=== PATIENT | male | born 1965 | race Caucasian/White ===

== ENCOUNTER 2020-05-26 13:46 | Inpatient (IN) | payer SELFPAY ==
--- NOTE | 2020-05-26 13:53 | BHS.RME ---
Substance Use & Tx History - Substance Use History Alcohol Substance amount: 1 gallon of vodka within 3 days Frequency of use: Daily Substance route: Oral Date of Last Use: 05/26/20 - Last Treatment Treatment type: Medical Where was last treatment: Detox Physical/Psych/Mental Status - Behavior Eye Contact: Normal - Cooperativeness Cooperativeness: Cooperative, Friendly - Physical Health Problems Is patient presently having any pain?: Yes Does patient presently have any injuries (include location): Yes (right elbow and right knee) Does patient currently have a fever: No Is patient : No CIWA Nausea/Vomitin-Mild Nausea/No Vomiting Muscle Tremors: 4-Moderate,w/Arms Extend Anxiety: 4-Mod. Anxious/Guarded Agitation: 4-Moderately Restless Paroxysmal Sweats: 3 Orientation: 0-Oriented Tacttile Disturbances: 0-None Auditory Disturbances: 0-None Visual Disturbances: 0-None Headache: 2-Mild CIWA-Ar Total Score: 18
--- NOTE | 2020-05-26 14:03 | HP ---
CIWA Score Nausea/Vomitin-Mild Nausea/No Vomiting Muscle Tremors: 4-Moderate,w/Arms Extend Anxiety: 4-Mod. Anxious/Guarded Agitation: 4-Moderately Restless Paroxysmal Sweats: 3 Orientation: 0-Oriented Tacttile Disturbances: 0-None Auditory Disturbances: 0-None Visual Disturbances: 0-None Headache: 2-Mild CIWA-Ar Total Score: 18 - Admission Criteria OASAS Guidelines: Admission for Medically Managed Detox: Requires at least one of the followin. CIWA greater than 12 2. Seizures within the past 24 hours 3. Delirium tremens within the past 24 hours 4. Hallucinations within the past 24 hours 5. Acute intervention needed for co occurring medical disorder 6. Acute intervention needed for co occurring psychiatric disorder 7. Severe withdrawal that cannot be handled at a lower level of care (continued vomiting, continued diarrhea, abnormal vital signs) requiring intravenous medication and/or fluids 8. Admitting History and Physical - Primary Care Physician PCP: none - Admission Chief Complaint: I feel sick and want to get better. History of Present Illness: Pt is a 55yr old male with a history of alcohol dependence seeking detox for treatment. Pt states he has a h/o HTN History Source: Patient Limitations to Obtaining History: No Limitations, Language Barrier - Past Medical History Gastrointestinal: Yes: Gastritis Psych: Yes: Depression Musculoskeletal: Yes: Chronic low back pain - Past Surgical History Past Surgical History: Yes: None - Smoking History Smoking history: Never smoked Have you smoked in the past 12 months: No - Alcohol/Substance Use Hx Alcohol Use: Yes Number of Drinks Daily: 1 History of Substance Use: reports: None - Social History Usual Living Arrangement: Yes: With Spouse Do you think of yourself as: Straight/Heterosexual ADL: Independent Admission ROS [facility] Chief Complaint: I feel sick and want to get better. Allergies/Adverse Reactions: Allergies Allergy/AdvReac Type Severity Reaction Status Date / Time No Known Allergies Allergy Verified 05/26/20 13:48 History of Present Illness: pt is a 55yr old male with a history of alcohol dependence seeking detox for treatment. pt is a fluent Lithuanian speaking male but understand little Bengali. pt also c/o of depression but has not seen a psychiatrist Exam Limitations: Language Barrier - Ebola screening Have you traveled outside of the country in the last 21 days: No Have you had contact with anyone from an Ebola affected area: No Have you been sick,other than usual withdrawal symptoms: No Do you have a fever: No - Review of Systems Constitutional: Chills, Diaphoresis, Loss of Appetite, Night Sweats, Changes in sleep EENT: reports: Tearing Respiratory: reports: No Symptoms reported Cardiac: reports: No Symptoms Reported GI: reports: Nausea, Poor Appetite, Poor Fluid Intake : reports: No Symptoms Reported Musculoskeletal: reports: Back Pain Integumentary: reports: Bruising (right elbow) Neuro: reports: Headache, Tingling, Tremors, Dizziness Endocrine: reports: Excessive Sweating, Flushing, Intolerance to Cold, Intolerance to Heat Hematology: reports: No Symptoms Reported Psychiatric: reports: Judgement Intact, Mood/Affect Appropiate, Orientated x3, Agitated Other Systems: Reviewed and Negative Patient History - Patient Medical History Hx Anemia: No Hx Asthma: No Hx Chronic Obstructive Pulmonary Disease (COPD): No Hx Cancer: No Hx Cardiac Disorders: No Hx Congestive Heart Failure: No Hx Hypertension: No Hx Hypercholesterolemia: No Hx Pacemaker: No HX Cerebrovascular Accident: No Hx Seizures: No Hx Dementia: No Hx Diabetes: No Hx Gastrointestinal Disorders: No Hx Liver Disease: No Hx Genitourinary Disorders: No Hx Sexually Transmitted Disorders: No Hx Renal Disease (ESRD): No Hx Thyroid Disease: No Hx Human Immunodeficiency Virus (HIV): No (pt denies ) Hx Hepatitis C: No Hx Depression: Yes Hx Suicide Attempt: No Hx Bipolar Disorder: No Hx Schizophrenia: No - Patient Surgical History Past Surgical History: No - PPD History Previous Implant?: Yes Documented Results: Positive w/o proof Implanted On Prior R Admission?: No PPD to be Administered?: No - Reproductive History Patient is a Female of Child Bearing Age (11 -55 yrs old): No - Smoking Cessation Smoking history: Never smoked Have you smoked in the past 12 months: No Hx Chewing Tobacco Use: No - Substance & Tx. History Hx Alcohol Use: Yes Hx Substance Use: No Substance Use Type: Alcohol Hx Substance Use Treatment: No - Substances abused Alcohol Substance route: Oral Frequency: Daily Amount used: 1 gallon of vodka within 3 days Age of first use: 15 Date of last use: 05/26/20 Admission Physical Exam BHS - Physical General Appearance: Yes: Appropriately Dressed, Moderate Distress, Irritable, Sweating, Anxious HEENTM: Yes: Normal Voice Respiratory: Yes: Lungs Clear, Normal Breath Sounds, No Respiratory Distress Neck: Yes: Within Normal Limits Breast: Yes: Within Normal Limits Cardiology: Yes: Regular Rate, Tachycardia Abdominal: Yes: Normal Bowel Sounds, Soft Genitourinary: Yes: Within Normal Limits Back: Yes: Within Normal Limits Musculoskeletal: Yes: Back pain Extremities: Yes: Non-Tender, Tremors Neurological: Yes: Fully Oriented, Alert, Normal Response Integumentary: Yes: Normal Color Lymphatic: Yes: Within Normal Limits - Diagnostic (1) Alcohol dependence with withdrawal, uncomplicated Current Visit: Yes Status: Chronic (2) Depression Current Visit: Yes Status: Acute Cleared for Admission S - Detox or Rehab [facility] Level of Care: Medically Managed Detox Regimen/Protocol: Librium Inpatient Rehab Admission - Rehab Decision to Admit Inpatient rehab admission?: No
[2020-05-26] MEDS ORDERED: chlordiazePOXIDE HCL 25 MG CAPSULE PO ONE (14:19)
[2020-05-26] MEDS ORDERED: MAGNESIUM CITRATE 300 ML BOTTLE PO PRN (14:19)
[2020-05-26] MEDS ORDERED: MAGNESIUM HYDROX 2400MG/30ML ORAL SUSPENSION 30 ML CUP PO PRN (14:19)
[2020-05-26] MEDS ORDERED: ACETAMINOPHEN 325 MG TABLET (FP) PO PRN ×2 (14:19)
[2020-05-26] MEDS ORDERED: MENTHOL/PHENOL 1 EACH UD MM PRN (14:19)
[2020-05-26] MEDS ORDERED: METHOCARBAMOL 500 MG TABLET PO PRN (14:19)
[2020-05-26] MEDS ORDERED: chlordiazePOXIDE HCL 25 MG CAPSULE PO PRN (14:19)
[2020-05-26] MEDS ORDERED: IBUPROFEN 400 MG TABLET (FP) PO PRN (14:19)
[2020-05-26] MEDS ORDERED: BISMUTH SUBSALICYLATE 262 MG/15 ML BTL PO PRN (14:19)
[2020-05-26] MEDS ORDERED: MAG HYDROX/AL HYDROX/SIMETH 30 ML UNIT-DOSE CUP PO PRN (14:19)
[2020-05-26] MEDS ORDERED: ONDANSETRON *ODT* 4 MG TABLET SL PRN (14:19)
[2020-05-26] MEDS ORDERED: hydrOXYzine PAMOATE 25 MG CAPSULE (FP) PO PRN (14:19)
[2020-05-26 15:15] VITALS: BMI 26.6
[2020-05-26] MEDS: chlordiazePOXIDE HCL 25 MG CAPSULE PO SCH ×2 (16:22→22:40)
[2020-05-26 18:25] LABS: HEMATOCRIT 34.7 % (35.4-49); HEMOGLOBIN 10.3 GM/dL (11.7-16.9); MCHC 29.8 g/dl (32.0-35.9); MEAN CELL VOLUME 63.8 fl (80-96); RBC 5.44 M/mm3 (4.00-5.60); RDW 22.5 % (11.9-15.9); WHITE BLOOD COUNT 5.2 K/mm3 (4.0-10.0)
[2020-05-26 18:42] LABS: ALBUMIN 4.3 g/dl (3.4-5.0); BILIRUBIN,TOTAL 0.9 mg/dL (0.2-1); BLOOD UREA NITROGEN 13.2 mg/dL (7-18); CALCIUM 8.4 mg/dL (8.5-10.1); CREATININE 0.5 mg/dL (0.55-1.3); TOT PROT 8.3 g/dl (6.4-8.2)
[2020-05-26] MEDS ORDERED: TRIMETHOBENZAMIDE HCL 200MG/2ML INJ IM PRN (18:52)
[2020-05-26 22:06] LABS: MEAN PLT VOLUME 9.4 fl (7.5-11.1); PLATELET COUNT 42 K/MM3 (134-434)
[2020-05-26] MEDS: THIAMINE HCL 100 MG TABLET (FP) PO SCH (22:40)
[2020-05-26] MEDS: MELATONIN 5 MG TABLETS PO SCH (22:40)
[2020-05-27] MEDS: chlordiazePOXIDE HCL 25 MG CAPSULE PO SCH ×4 (06:37→23:03)
--- NOTE | 2020-05-27 09:04 | EKG ---
Test Reason : Blood Pressure : / mmHG Vent. Rate : 089 BPM Atrial Rate : 089 BPM P-R Int : 154 ms QRS Dur : 096 ms QT Int : 384 ms P-R-T Axes : 048 043 039 degrees QTc Int : 467 ms NORMAL SINUS RHYTHM VOLTAGE CRITERIA FOR LEFT VENTRICULAR HYPERTROPHY ABNORMAL ECG NO PREVIOUS ECGS AVAILABLE Confirmed by Ofelia Rosales ([id number]) on 05/27/2020 9:04:18 AM Referred By: Confirmed By:Ofelia Rosales
--- NOTE | 2020-05-27 10:28 | CONSULT ---
[facility] Psychiatric Consult - Data Date of interview: 05/27/20 Admission source: [facility] Identifying data: Patient is a 55 year old male, father of three, unemployed, domiciled (rents a room), and is not currently supported with financial benefits. This is patient's first admission to detox at [facility]. Patient admitted to for alcohol dependence. Substance Abuse History: Smoking Cessation. Smoking history: Never smoked. Have you smoked in the past 12 months: No. Hx Chewing Tobacco Use: No. - Substance & Tx. History. Hx Alcohol Use: Yes. Hx Substance Use: No. Substance Use Type: Alcohol. Hx Substance Use Treatment: No. - Substances abused. Alcohol. Substance route: Oral. Frequency: Daily. Amount used: 1 gallon of vodka within 3 days. Age of first use: 15. Date of last use: 05/26/20 Medical History: hypertension, gastritis, and chronic low back pain. Psychiatric History: Interview conducted bedside. Patient denies history of psychiatric hospitalizations, outpatient psychiatric care, and suicide attempt. At present patient reports feeling sad. Denies suicidal/ homicidal ideation. Physical/Sexual Abuse/Trauma History: denies. Mental Status Exam - Mental Status Exam Alert and Oriented to: Time, Place, Person Cognitive Function: Good Patient Appearance: Well Groomed Mood: Withdrawn Affect: Mood Congruent Patient Behavior: Fatigued, Cooperative Speech Pattern: Appropriate (Ethiopian speaking.) Voice Loudness: Mildly Soft/Quiet Thought Process: Goal Oriented Thought Disorder: Not Present Hallucinations: Denies Suicidal Ideation: Denies Homicidal Ideation: Denies Insight/Judgement: Poor Sleep: Fair Appetite: Fair Muscle strength/Tone: Normal Gait/Station: Other (Gait not observed.) Psychiatric Findings - Problem List ([place] 1, 2,3) (1) Alcohol-induced mood disorder Current Visit: Yes Status: Acute (2) Alcohol dependence with withdrawal, uncomplicated Current Visit: Yes Status: Chronic - Initial Treatment Plan Initial Treatment Plan: Psychoeducation provided. Detoxification in progress. Observation.
[2020-05-27] MEDS: BACITRACIN 0.9 GM PACKET TP SCH (10:54)
[2020-05-27] MEDS: PRENATAL VITAMINS W/ FOLIC ACID TABLET (FP) PO SCH (10:55)
[2020-05-27] MEDS: PANTOPRAZOLE 40 MG TABLET PO SCH (10:55)
--- NOTE | 2020-05-27 11:11 | PN ---
[facility] CIWA - CIWA Score Nausea/Vomitin-No Nausea/No Vomiting Muscle Tremors: 3 Anxiety: 3 Agitation: 3 Paroxysmal Sweats: 3 Orientation: 0-Oriented Tacttile Disturbances: 0-None Auditory Disturbances: 0-None Visual Disturbances: 0-None Headache: 0-None Present CIWA-Ar Total Score: 12 S Progress Note (SOAP) Subjective: Complaints of sweats, tremor, agitation and anxiety. Objective: 05/27/20 11:10 Vital Signs 05/27/20 05/27/20 05:41 08:53 Temperature 97.3 F L 97.1 F L Pulse Rate 92 H 110 H Respiratory 20 16 Rate Blood Pressure 154/94 149/91 O2 Sat by Pulse 98 98 Oximetry (%) Laboratory Last Values WBC 5.2 K/mm3 (4.0-10.0) 05/26/20 13:45 RBC 5.44 M/mm3 (4.00-5.60) 05/26/20 13:45 Hgb 10.3 GM/dL (11.7-16.9) L 05/26/20 13:45 Hct 34.7 % (35.4-49) L 05/26/20 13:45 MCV 63.8 fl (80-96) L 05/26/20 13:45 MCH 19.0 pg (25.7-33.7) L 05/26/20 13:45 MCHC 29.8 g/dl (32.0-35.9) L 05/26/20 13:45 RDW 22.5 % (11.9-15.9) H 05/26/20 13:45 Plt Count 42 K/MM3 (134-434) L 05/26/20 13:45 MPV 9.4 fl (7.5-11.1) 05/26/20 13:45 Platelet Comment 05/26/20 13:45 Sodium 140 mmol/L (136-145) 05/26/20 13:45 Potassium 3.0 mmol/L (3.5-5.1) L 05/26/20 13:45 Chloride 101 mmol/L (98-107) 05/26/20 13:45 Carbon Dioxide 27 mmol/L (21-32) 05/26/20 13:45 Anion Gap 12 MMOL/L (8-16) 05/26/20 13:45 BUN 13.2 mg/dL (7-18) 05/26/20 13:45 Creatinine 0.5 mg/dL (0.55-1.3) L 05/26/20 13:45 Est GFR (CKD-EPI)AfAm 140.40 05/26/20 13:45 Est GFR (CKD-EPI)NonAf 121.14 05/26/20 13:45 Random Glucose 101 mg/dL (74-106) 05/26/20 13:45 Calcium 8.4 mg/dL (8.5-10.1) L 05/26/20 13:45 Total Bilirubin 0.9 mg/dL (0.2-1) 05/26/20 13:45 AST 76 U/L (15-37) H 05/26/20 13:45 ALT 53 U/L (13-61) 05/26/20 13:45 Alkaline Phosphatase 59 U/L (45-117) 05/26/20 13:45 Total Protein 8.3 g/dl (6.4-8.2) H 05/26/20 13:45 Albumin 4.3 g/dl (3.4-5.0) 05/26/20 13:45 Syphilis Serology Non-reactive (NONREACTIVE) 05/26/20 13:45 05/27/20 11:12 Labs noted with hypokalemia Assessment: 05/27/20 11:12 Alert and oriented x 3, in no acute distress. Decreased ROM, ambulating in the unit with wheelchair. Skin was to touch with any lesions. Withdrawal symptoms. Hypokalemia. Plan: Continue detox protocol. Replace potassium and repeat BMP
[2020-05-27] MEDS: POTASSIUM CHLORIDE TABS 20 MEQ TABLET.ER (FP) PO SCH (11:54)
[2020-05-27] MEDS: THIAMINE HCL 100 MG TABLET (FP) PO SCH (23:03)
[2020-05-27] MEDS: MELATONIN 5 MG TABLETS PO SCH (23:04)
[2020-05-28] MEDS: chlordiazePOXIDE HCL 25 MG CAPSULE PO SCH ×4 (05:54→23:01)
[2020-05-28] MEDS ORDERED: TRIMETHOBENZAMIDE HCL 200MG/2ML INJ IM PRN (09:45)
[2020-05-28 11:14] LABS: BLOOD UREA NITROGEN 10.6 mg/dL (7-18); CALCIUM 8.3 mg/dL (8.5-10.1); CREATININE 0.6 mg/dL (0.55-1.3)
[2020-05-28] MEDS: BACITRACIN 0.9 GM PACKET TP SCH (11:23)
[2020-05-28] MEDS: PANTOPRAZOLE 40 MG TABLET PO SCH (11:24)
[2020-05-28] MEDS: PRENATAL VITAMINS W/ FOLIC ACID TABLET (FP) PO SCH (11:24)
[2020-05-28] MEDS: POTASSIUM CHLORIDE TABS 20 MEQ TABLET.ER (FP) PO SCH (11:24)
[2020-05-28 12:02] LABS: POTASSIUM 2.8 mmol/L (3.5-5.1)
[2020-05-28] MEDS ORDERED: POTASSIUM CHLORIDE ORAL LIQUID 20 MEQ/15 ML PO ONE ×2 (12:09→18:00)
--- NOTE | 2020-05-28 17:21 | PN ---
S CIWA - CIWA Score Nausea/Vomitin-Mild Nausea/No Vomiting Muscle Tremors: 2 Anxiety: 2 Agitation: 2 Paroxysmal Sweats: 2 Orientation: 0-Oriented Tacttile Disturbances: 0-None Auditory Disturbances: 0-None Visual Disturbances: 0-None Headache: 0-None Present CIWA-Ar Total Score: 9 BHS Progress Note (SOAP) Subjective: N/V; Patient witnessed by contract technical writer vomiting in toilet liquid food content, patient stated, "don't like it here." Patient told overnight caregiver RN that his medication makes him dizzy. Patient appears confused as per RN. Upon evaluation patient is A/Ox3. Objective: 05/28/20 17:17 Last Vital Signs Temp Pulse Resp BP Pulse Ox 96.6 F L 94 H 18 133/71 100 05/28/20 12:33 05/28/20 12:33 05/28/20 12:33 05/28/20 12:33 05/28/20 08:42 Noted vomiting moderate amount of liquid food content in toilet Laboratory Tests 05/26/20 05/26/20 05/26/20 13:45 13:45 13:45 WBC 5.2 RBC 5.44 Hgb 10.3 L Hct 34.7 L MCV 63.8 L MCH 19.0 L MCHC 29.8 L RDW 22.5 H Plt Count 42 L MPV 9.4 Platelet Comment Sodium 140 Potassium 3.0 L Chloride 101 Carbon Dioxide 27 Anion Gap 12 BUN 13.2 Creatinine 0.5 L Est GFR (CKD-EPI)AfAm 140.40 Est GFR (CKD-EPI)NonAf 121.14 Random Glucose 101 Calcium 8.4 L Total Bilirubin 0.9 AST 76 H ALT 53 Alkaline Phosphatase 59 Total Protein 8.3 H Albumin 4.3 Syphilis Serology Non-reactive COVID-19 (ISIS) HIV Ag/Ab Combo Qual 05/26/20 05/27/20 05/28/20 15:15 06:00 07:30 WBC RBC Hgb Hct MCV MCH MCHC RDW Plt Count MPV Platelet Comment Sodium 136 Potassium 2.8 L* Chloride 97 L Carbon Dioxide 30 Anion Gap 8 BUN 10.6 Creatinine 0.6 Est GFR (CKD-EPI)AfAm 130.27 Est GFR (CKD-EPI)NonAf 112.40 Random Glucose 84 Calcium 8.3 L Total Bilirubin AST ALT Alkaline Phosphatase Total Protein Albumin Syphilis Serology COVID-19 (ISIS) Not detected HIV Ag/Ab Combo Qual Negative Labs reviewed: K 2.8 >> 3.0 (low), AST 76 (high), anemia, pancytopenia Assessment: 05/28/20 17:21 Withdrawal sxs Noted with transaminitis, hypokalemia, anemia and pancytopenia Plan: Continue detox Encourage PO water intake Send ammonia level in AM due to possible confusion N/V: Tigan 200mg IM q8hr prn, encourage PO fluid intake as tolerated, check BMP Transaminitis: repeat AST Hypokalemia: most likely due to vomiting, start K Dur 40 meq PO liquid form x 2 doses (give at least 4 hours apart), repeat BMP in AM due to vomiting, continue supplemental dose in AM Anemia: continue vitamin, follow up with PCP for management Pancytopenia: most likely due to alcoholism, monitor for bruising/bleeding, encourage abstinence from alcohol and encourage inpatient drug rehab
[2020-05-28] MEDS: THIAMINE HCL 100 MG TABLET (FP) PO SCH (22:41)
[2020-05-28] MEDS: MELATONIN 5 MG TABLETS PO SCH (22:41)
[2020-05-29] MEDS ORDERED: chlordiazePOXIDE HCL 10 MG CAPSULE PO PRN
[2020-05-29] MEDS ORDERED: chlordiazePOXIDE HCL 10 MG CAPSULE PO SCH (05:00)
[2020-05-29 09:18] VITALS: BP 118/86; PULSE 82; TEMP 96.2
--- NOTE | 2020-05-29 09:22 | DS ---
[facility] Detox Discharge Summary Admission Date: 05/26/20 Discharge Date: 05/29/20 - History Present History: Alcohol Dependence - Physical Exam Results Vital Signs: Vital Signs Temperature 96.2 F L 05/29/20 08:33 Pulse Rate 82 05/29/20 08:33 Respiratory Rate 18 05/29/20 08:33 Blood Pressure 118/86 05/29/20 08:33 O2 Sat by Pulse Oximetry (%) 96 05/29/20 08:33 Pertinent Admission Physical Exam Findings: Vital Signs Temperature 96.2 F L 05/29/20 08:33 Pulse Rate 82 05/29/20 08:33 Respiratory Rate 18 05/29/20 08:33 Blood Pressure 118/86 05/29/20 08:33 O2 Sat by Pulse Oximetry (%) 96 05/29/20 08:33 Laboratory Tests 05/26/20 05/26/20 05/26/20 13:45 13:45 13:45 WBC 5.2 RBC 5.44 Hgb 10.3 L Hct 34.7 L MCV 63.8 L MCH 19.0 L MCHC 29.8 L RDW 22.5 H Plt Count 42 L MPV 9.4 Platelet Comment Sodium 140 Potassium 3.0 L Chloride 101 Carbon Dioxide 27 Anion Gap 12 BUN 13.2 Creatinine 0.5 L Est GFR (CKD-EPI)AfAm 140.40 Est GFR (CKD-EPI)NonAf 121.14 Random Glucose 101 Calcium 8.4 L Total Bilirubin 0.9 AST 76 H ALT 53 Alkaline Phosphatase 59 Total Protein 8.3 H Albumin 4.3 Syphilis Serology Non-reactive COVID-19 (ISIS) HIV Ag/Ab Combo Qual 05/26/20 05/27/20 05/28/20 15:15 06:00 07:30 WBC RBC Hgb Hct MCV MCH MCHC RDW Plt Count MPV Platelet Comment Sodium 136 Potassium 2.8 L* Chloride 97 L Carbon Dioxide 30 Anion Gap 8 BUN 10.6 Creatinine 0.6 Est GFR (CKD-EPI)AfAm 130.27 Est GFR (CKD-EPI)NonAf 112.40 Random Glucose 84 Calcium 8.3 L Total Bilirubin AST ALT Alkaline Phosphatase Total Protein Albumin Syphilis Serology COVID-19 (ISIS) Not detected HIV Ag/Ab Combo Qual Negative - Treatment Hospital Course: Detox Protocol Followed, Detoxed Safely, Responded well, Discharged Condition Good, Rehab Referral Accepted - Medication Discharge Medications: Ambulatory Orders Potassium Chloride [K-Dur -] 40 meq PO DAILY #5 tablet.er 05/29/20 - Diagnosis (1) Alcohol dependence with withdrawal, uncomplicated Current Visit: Yes Status: Chronic (2) Depression Current Visit: Yes Status: Acute - AMA Did Patient Leave Against Medical Advice: No
[2020-05-29 13:03] LABS: ANION GAP 5 MMOL/L (8-16); BLOOD UREA NITROGEN 9.9 mg/dL (7-18); CHLORIDE 103 mmol/L (98-107); CO2 29 mmol/L (21-32); CREATININE 0.4 mg/dL (0.55-1.3); GLUCOSE,RANDOM 86 mg/dL (74-106); POTASSIUM 3.7 mmol/L (3.5-5.1); SGOT/AST 100 U/L (15-37); SODIUM 137 mmol/L (136-145)
[2020-05-29 13:25] LABS: CALCIUM < 5.0 mg/dL (8.5-10.1)
[2020-05-30] MEDS ORDERED: chlordiazePOXIDE HCL 10 MG CAPSULE PO SCH (05:00)
[2020-05-31] MEDS ORDERED: chlordiazePOXIDE HCL 10 MG CAPSULE PO ONE (05:00)
== END 2020-05-29 09:24 | disposition home or self-care (01) | DRG 775 ==
LOC: YASAS 13:46 → Y6N 15:09
PROVIDERS: ADMIT Allergy & Immunology; ATTEND Allergy & Immunology
PROC: HZ2ZZZZ Detoxification Services for Substance Abuse Treatment (ICD-10-PCS; principal; 2020-05-26)
DX: F10.230 Alcohol dependence with withdrawal, uncomplicated (principal); F10.24 Alcohol dependence with alcohol-induced mood disorder; F32.9 Major depressive disorder, single episode, unspecified; E87.6 Hypokalemia; D64.9 Anemia, unspecified; D61.818 Other pancytopenia; I10 Essential (primary) hypertension; M54.5 Low back pain; G89.29 Other chronic pain; R74.0 Nonspecific elevation of levels of transaminase and lactic acid dehydrogenase [LDH]; Z87.19 Personal history of other diseases of the digestive system
CPT/HCPCS: 36415; 80048; 80053; 82140; 84450; 85027; 86780; 87389; 93005; 93010; Q0162; U0003

== ENCOUNTER 2020-07-22 14:06 | Inpatient (IN) | payer OTHER ==
[~2020-07-22 14:06] MED LIST: LORazepam 2 MG TABLET PO SCH
[2020-07-22] MEDS ORDERED: LACTATED RINGERS SOLUTION 1000 ML INFUS.BAG IV ONE ×2 (15:02→16:23)
[2020-07-22] MEDS ORDERED: ONDANSETRON 4 MG/2 ML VIAL IVPUSH ONE (15:02)
[2020-07-22 15:48] LABS: BASO % 1.2 % (0-2.0); HEMATOCRIT 39.3 % (35.4-49); HEMOGLOBIN 11.9 GM/dL (11.7-16.9); LYMPH % 16.5 % (8-40); MCHC 30.4 g/dl (32.0-35.9); MEAN CELL VOLUME 63.1 fl (80-96); MEAN PLT VOLUME 9.4 fl (7.5-11.1); MONO % 4.1 % (3.8-10.2); NEUT % 78.2 % (42.8-82.8); PLATELET COUNT 185 K/MM3 (134-434); RBC 6.22 M/mm3 (4.00-5.60); RDW 21.4 % (11.9-15.9); WHITE BLOOD COUNT 8.3 K/mm3 (4.0-10.0)
[2020-07-22 15:55] LABS: MCH 19.2 pg (25.7-33.7)
[2020-07-22 16:03] LABS: CHLORIDE 103 mmol/L (98-107); POTASSIUM 3.6 mmol/L (3.5-5.1); SODIUM 143 mmol/L (136-145)
[2020-07-22] MEDS ORDERED: ACETAMINOPHEN 1000 MG/100 ML VIAL (NON FORMULARY) IVPB ONE (16:03)
[2020-07-22 16:05] LABS: ALBUMIN 4.3 g/dl (3.4-5.0); ANION GAP 13 MMOL/L (8-16); BLOOD UREA NITROGEN 16.4 mg/dL (7-18); CALCIUM 8.4 mg/dL (8.5-10.1); CO2 27 mmol/L (21-32); LIPASE 391 U/L (73-393)
[2020-07-22 16:06] LABS: GLUCOSE,RANDOM 117 mg/dL (74-106)
[2020-07-22 16:08] LABS: CREATININE 0.6 mg/dL (0.55-1.3); SGOT/AST 52 U/L (15-37); SGPT/ALT 44 U/L (13-61)
[2020-07-22 16:10] LABS: BILIRUBIN,TOTAL 0.8 mg/dL (0.2-1); TOT PROT 8.3 g/dl (6.4-8.2)
[2020-07-22 16:11] LABS: ALK PHOS 55 U/L (45-117)
[2020-07-22] MEDS ORDERED: ACETAMINOPHEN INJECTION 100 ML IVPB ONE (17:03)
[2020-07-22 17:15] LABS: VENOUS BASE EXCESS 1.2 mmol/L (-2-2); VENOUS O2 SATURATION 91.9 % (70-80); VENOUS PCO2 33.8 mmHg (38-52); VENOUS PH 7.475 (7.310-7.410)
[2020-07-22] MEDS ORDERED: LORazepam 2 MG/ML SDV VIAL ONE (18:54)
[2020-07-22] MEDS ORDERED: FAMOTIDINE 20 MG/50 ML IVPB 20 MG/50 ML MG IVPB ONE ×2 (19:17→19:20)
[2020-07-22] MEDS ORDERED: METOCLOPRAMIDE HCL INJECTION 10 MG/2 ML VIAL IVPB ONE (22:00)
[2020-07-22] MEDS ORDERED: METOCLOPRAMIDE HCL INJECTION 10 MG/2 ML VIAL ONE (22:42)
[2020-07-22] MEDS ORDERED: LACTATED RINGERS SOLUTION 1,000 ML IV SCH (22:45)
[2020-07-22] MEDS ORDERED: LORazepam 1 MG TABLET PO PRN (22:57)
[2020-07-22] MEDS ORDERED: LIDOCAINE VISCOUS 2% ORAL/TOP 20 ML UNIT-DOSE CUP MM ONE (22:59)
[2020-07-22] MEDS ORDERED: PROCHLORPERAZINE INJECTION 10 MG/2 ML VIAL IVPB ONE (22:59)
[2020-07-23] MEDS ORDERED: PROCHLORPERAZINE INJECTION 10 MG/2 ML VIAL ONE (01:28)
[2020-07-23] MEDS ORDERED: LORazepam 1 MG TABLET PO SCH (05:00)
[2020-07-23] MEDS ORDERED: LORazepam 1 MG TABLET ONE ×2 (05:20→10:14)
[2020-07-23 05:48] LABS: EPI CELLS 35 /uL (0-25.1); HYALINE CASTS 64 /uL (0-3.1); URINE APPEARANCE CLOUDY; URINE BACTERIA 592 /uL (0-1359); URINE BILIRUBIN NEGATIVE (NEGATIVE); URINE COLOR YELLOW; URINE GLUCOSE (UA) NEGATIVE (NEGATIVE); URINE KETONE 3+ (NEGATIVE); URINE LEUK ESTERASE NEGATIVE (NEGATIVE); URINE NITRITE NEGATIVE (NEGATIVE); URINE PROTEIN 3+ (NEGATIVE); URINE RBC 3 /uL (0-23.9); URINE WBC 9 /uL (0-25.8)
[2020-07-23 06:12] LABS: BASO % 0.7 % (0-2.0); EOS % 0.2 % (0-4.5); HEMATOCRIT 31.4 % (35.4-49); HEMOGLOBIN 9.3 GM/dL (11.7-16.9); LYMPH % 22.5 % (8-40); MCHC 29.6 g/dl (32.0-35.9); MEAN CELL VOLUME 64.2 fl (80-96); MONO % 5.3 % (3.8-10.2); NEUT % 71.3 % (42.8-82.8); PLATELET COUNT 113 K/MM3 (134-434); RDW 20.8 % (11.9-15.9); WHITE BLOOD COUNT 7.6 K/mm3 (4.0-10.0)
[2020-07-23 07:08] LABS: POTASSIUM 3.5 mmol/L (3.5-5.1)
[2020-07-23 07:12] LABS: ALBUMIN 3.6 g/dl (3.4-5.0); CALCIUM 7.8 mg/dL (8.5-10.1)
[2020-07-23 07:13] LABS: BLOOD UREA NITROGEN 12.7 mg/dL (7-18); MAGNESIUM 1.7 mg/dL (1.8-2.4)
[2020-07-23 07:16] LABS: CREATININE 0.5 mg/dL (0.55-1.3); PHOSPHOROUS 3.1 mg/dL (2.5-4.9)
[2020-07-23 07:17] LABS: BILIRUBIN,TOTAL 1.2 mg/dL (0.2-1); TOT PROT 6.7 g/dl (6.4-8.2)
[2020-07-23] MEDS ORDERED: POTASSIUM CHLORIDE ORAL LIQUID 20 MEQ/15 ML PO ONE (07:42)
[2020-07-23] MEDS ORDERED: MAGNESIUM SULF 50% (8.12 MEQ/2 ML-1 GM VIAL) IVPB ONE (07:43)
[2020-07-23 08:57] LABS: RETICULOCYTES 1.14 % (0.5-1.5)
[2020-07-23] MEDS ORDERED: THIAMINE HCL 100 MG TABLET (FP) PO SCH (10:00)
[2020-07-23] MEDS ORDERED: PANTOPRAZOLE 40 MG TABLET PO SCH (10:00)
[2020-07-23] MEDS ORDERED: ENOXAPARIN NA (PORCINE) 40 MG/0.4 ML DISP.SYRIN SQ SCH (10:00)
[2020-07-23] MEDS ORDERED: MULTIVIT-MINERALS ORAL LIQUID PO SCH (10:00)
[2020-07-23] MEDS ORDERED: FOLIC ACID 1 MG TABLET (FP) PO SCH (10:00)
[2020-07-23] MEDS ORDERED: PANTOPRAZOLE 40 MG TABLET ONE (10:13)
[2020-07-23] MEDS ORDERED: THIAMINE HCL 100 MG TABLET (FP) ONE (10:13)
[2020-07-23] MEDS ORDERED: LACTATED RINGERS SOLUTION 1,000 ML/1,000 ML INFUS.BAG IV SCH (10:45)
[2020-07-23] MEDS ORDERED: LORazepam 2 MG TABLET PO SCH (11:00)
[2020-07-23] MEDS ORDERED: ENOXAPARIN NA (PORCINE) 40 MG/0.4 ML DISP.SYRIN SQ ONE (11:11)
[2020-07-23] MEDS ORDERED: ONDANSETRON 4 MG/2 ML VIAL IVPB PRN (13:24)
[2020-07-23] MEDS ORDERED: ONDANSETRON 4 MG/2 ML VIAL IVPUSH PRN ×2 (13:32→18:51)
[2020-07-23 14:46] LABS: URINE BARBITURATES NEGATIVE ng/ml (CUTOFF=200); URINE BENZODIAZEPINES NEGATIVE ng/ml (CUTOFF=200)
[2020-07-23 14:47] LABS: COCAINE, UR NEGATIVE ng/ml (CUTOFF=300); METHADONE, UR NEGATIVE ng/ml (CUTOFF=300); OPIATES, URI NEGATIVE ng/ml (CUTOFF=300); PHENCYCLIDINE,URINE NEGATIVE ng/ml (CUTOFF=25); URINE AMPHETAMINES NEGATIVE ng/ml (CUTOFF=500)
[2020-07-23 16:04] VITALS: BMI 28.9
[2020-07-23] MEDS ORDERED: LORazepam 2 MG/ML SDV VIAL IVPUSH ONE (16:23)
[2020-07-23] MEDS: PANTOPRAZOLE SODIUM 80 MG in SODIUM CHLORIDE 100 ML IVPB SCH (16:40)
[2020-07-23] MEDS ORDERED: EPINEPHrine 1:10,000 (P-F SYR) 1 MG/10 ML DISP.SYRIN ONE (17:11)
[2020-07-23 17:57] LABS: BASO % 0.4 % (0-2.0); EOS % 0.5 % (0-4.5); HEMATOCRIT 29.6 % (35.4-49); HEMOGLOBIN 8.9 GM/dL (11.7-16.9); LYMPH % 19.3 % (8-40); MEAN CELL VOLUME 64.3 fl (80-96); MONO % 7.4 % (3.8-10.2); NEUT % 72.4 % (42.8-82.8); RDW 20.9 % (11.9-15.9); WHITE BLOOD COUNT 5.1 K/mm3 (4.0-10.0)
[2020-07-23 17:59] LABS: MCH 19.3 pg (25.7-33.7)
[2020-07-23] MEDS ORDERED: EPINEPHrine 1:10,000 (P-F SYR) 1 MG/10 ML DISP.SYRIN IVPUSH ONE (18:02)
[2020-07-23] MEDS ORDERED: ONDANSETRON 4 MG/2 ML VIAL ONE (18:41)
[2020-07-23 19:10] LABS: MEAN PLT VOLUME 8.8 fl (7.5-11.1); PLATELET COUNT 85 K/MM3 (134-434)
[2020-07-23 19:12] LABS: PLATELET ESTIMATE SLT DECREASE
[2020-07-23] MEDS ORDERED: PANTOPRAZOLE SODIUM 40 MG VIAL IVPB ONE (19:40)
[2020-07-23] MEDS: LACTATED RINGERS SOLUTION 1,000 ML/1,000 ML INFUS.BAG IV SCH (20:29)
[2020-07-23] MEDS ORDERED: PANTOPRAZOLE SODIUM 40 MG VIAL IVPUSH SCH (22:00)
[2020-07-24] MEDS ORDERED: LORazepam 0.5 MG TABLET PO PRN
[2020-07-24] MEDS: LORazepam 2 MG/ML SDV VIAL IVPUSH SCH ×4 (02:01→18:06)
[2020-07-24] MEDS: PANTOPRAZOLE SODIUM 80 MG in SODIUM CHLORIDE 100 ML IVPB SCH ×2 (02:02→12:23)
[2020-07-24 02:13] LABS: HEMOGLOBIN 9.7 GM/dL (11.7-16.9); MCHC 30.5 g/dl (32.0-35.9); WHITE BLOOD COUNT 4.7 K/mm3 (4.0-10.0)
[2020-07-24 02:27] LABS: HEMATOCRIT 31.8 % (35.4-49); MEAN CELL VOLUME 64.3 fl (80-96); MEAN PLT VOLUME 9.1 fl (7.5-11.1); PLATELET COUNT 85 K/MM3 (134-434); RBC 4.95 M/mm3 (4.00-5.60); RDW 21.1 % (11.9-15.9)
[2020-07-24 02:29] LABS: MCH 19.6 pg (25.7-33.7)
[2020-07-24] MEDS: LACTATED RINGERS SOLUTION 1,000 ML/1,000 ML INFUS.BAG IV SCH (03:40)
[2020-07-24] MEDS ORDERED: LORazepam 1 MG TABLET PO SCH (05:00)
[2020-07-24] MEDS ORDERED: FOLIC ACID 5 MG/1 ML SQ ONE ×2 (06:00→11:30)
[2020-07-24 07:24] LABS: POTASSIUM 3.7 mmol/L (3.5-5.1)
[2020-07-24 07:29] LABS: ALBUMIN 3.6 g/dl (3.4-5.0); BLOOD UREA NITROGEN 6.7 mg/dL (7-18); CALCIUM 8.4 mg/dL (8.5-10.1)
[2020-07-24 07:30] LABS: MAGNESIUM 1.8 mg/dL (1.8-2.4)
[2020-07-24 07:33] LABS: CREATININE 0.4 mg/dL (0.55-1.3)
[2020-07-24 07:34] LABS: BILIRUBIN,TOTAL 1.5 mg/dL (0.2-1); TOT PROT 6.9 g/dl (6.4-8.2)
[2020-07-24] MEDS ORDERED: PT OWN MED DRAWER 7, Y5N ONE ×3 (08:23→10:25)
[2020-07-24] MEDS ORDERED: MULTIVIT INJ. ADULT COMBO WITH VIT K 1 COMBO 10 ML VIAL IV SCH (10:00)
[2020-07-24] MEDS ORDERED: IRON SUCROSE INJECTION 100 MG in SODIUM CHLORIDE 95 ML IVPB ONE (10:00)
[2020-07-24] MEDS: THIAMINE HCL 200 MG/2 ML VIAL IVPB SCH (10:27)
[2020-07-24 11:49] LABS: BASO % 0.3 % (0-2.0); EOS % 0.1 % (0-4.5); MEAN PLT VOLUME 8.8 fl (7.5-11.1); WHITE BLOOD COUNT 3.5 K/mm3 (4.0-10.0)
[2020-07-24 12:11] LABS: LYMPH % 33.4 % (8-40); MONO % 6.4 % (3.8-10.2); NEUT % 59.8 % (42.8-82.8); PLATELET COUNT 82 K/MM3 (134-434)
[2020-07-24 12:13] LABS: HEMATOCRIT 30.5 % (35.4-49); HEMOGLOBIN 9.3 GM/dL (11.7-16.9); MCH 19.7 pg (25.7-33.7); MCHC 30.3 g/dl (32.0-35.9); MEAN CELL VOLUME 65.1 fl (80-96)
[2020-07-24 12:14] LABS: RBC 4.69 M/mm3 (4.00-5.60); RDW 20.9 % (11.9-15.9)
[2020-07-24] MEDS ORDERED: MELATONIN 5 MG TABLETS PO ONE (21:25)
[2020-07-24] MEDS: PANTOPRAZOLE SODIUM 40 MG VIAL IVPUSH SCH (21:42)
[2020-07-25] MEDS: LORazepam 2 MG/ML SDV VIAL IVPUSH SCH (00:54)
[2020-07-25] MEDS ORDERED: LORazepam 0.5 MG TABLET PO SCH (05:00)
[2020-07-25 07:16] LABS: HEMATOCRIT 32.3 % (35.4-49); HEMOGLOBIN 9.6 GM/dL (11.7-16.9); MCHC 29.8 g/dl (32.0-35.9); MEAN CELL VOLUME 65.5 fl (80-96); PLATELET COUNT 86 K/MM3 (134-434); RBC 4.94 M/mm3 (4.00-5.60); RDW 21.6 % (11.9-15.9)
[2020-07-25 07:21] LABS: MCH 19.5 pg (25.7-33.7)
[2020-07-25 07:30] LABS: CALCIUM 8.5 mg/dL (8.5-10.1)
[2020-07-25 07:31] LABS: ALBUMIN 3.9 g/dl (3.4-5.0); BLOOD UREA NITROGEN 10.3 mg/dL (7-18); MAGNESIUM 1.9 mg/dL (1.8-2.4)
[2020-07-25 07:34] LABS: CREATININE 0.5 mg/dL (0.55-1.3); PHOSPHOROUS 2.6 mg/dL (2.5-4.9)
[2020-07-25 07:35] LABS: BILIRUBIN,TOTAL 1.3 mg/dL (0.2-1); TOT PROT 7.4 g/dl (6.4-8.2)
[2020-07-25 07:56] LABS: EPI CELLS 10 /uL (0-25.1); HYALINE CASTS 7 /uL (0-3.1); PH,URINE >= 9.0 (5.0-8.0); URINE APPEARANCE CLEAR; URINE BACTERIA 31 /uL (0-1359); URINE BILIRUBIN NEGATIVE (NEGATIVE); URINE COLOR DK YELLOW; URINE GLUCOSE (UA) NEGATIVE (NEGATIVE); URINE KETONE 1+ (NEGATIVE); URINE LEUK ESTERASE 1+ (NEGATIVE); URINE NITRITE NEGATIVE (NEGATIVE); URINE PROTEIN 1+ (NEGATIVE); URINE RBC 12 /uL (0-23.9); URINE UROBILINOGEN 4.0 E.U/dl mg/dL (0.2-1.0); URINE WBC 110 /uL (0-25.8)
[2020-07-25] MEDS ORDERED: KCL 10 MEQ IVPB 10 MEQ/100 ML INFUS.BAG IVPB SCH (08:30)
[2020-07-25] MEDS ORDERED: POTASSIUM CHLORIDE TABS 20 MEQ TABLET.ER (FP) PO ONE (08:45)
[2020-07-25] MEDS: PANTOPRAZOLE SODIUM 40 MG VIAL IVPUSH SCH (09:06)
[2020-07-25] MEDS: THIAMINE HCL 200 MG/2 ML VIAL IVPB SCH (10:14)
[2020-07-25] MEDS ORDERED: LORazepam 1 MG TABLET PO PRN (16:31)
[2020-07-25] MEDS: PANTOPRAZOLE 40 MG TABLET PO SCH (21:38)
[2020-07-26] MEDS ORDERED: LORazepam 0.5 MG TABLET PO ONE (05:00)
[2020-07-26 06:56] LABS: HEMATOCRIT 33.3 % (35.4-49); HEMOGLOBIN 9.7 GM/dL (11.7-16.9); MCHC 29.2 g/dl (32.0-35.9); MEAN CELL VOLUME 66.4 fl (80-96); PLATELET COUNT 74 K/MM3 (134-434); RBC 5.01 M/mm3 (4.00-5.60); RDW 22.3 % (11.9-15.9)
[2020-07-26 07:03] LABS: INR 1.11 (0.83-1.09); MCH 19.4 pg (25.7-33.7); PROTHROMBIN TIME (PATIENT) 13.4 SEC (9.7-13.0)
[2020-07-26 07:38] LABS: POTASSIUM 3.4 mmol/L (3.5-5.1)
[2020-07-26 07:44] LABS: ALBUMIN 3.6 g/dl (3.4-5.0); BLOOD UREA NITROGEN 6.4 mg/dL (7-18); CALCIUM 8.4 mg/dL (8.5-10.1)
[2020-07-26 07:45] LABS: MAGNESIUM 1.7 mg/dL (1.8-2.4)
[2020-07-26 07:47] LABS: PHOSPHOROUS 3.6 mg/dL (2.5-4.9)
[2020-07-26 07:48] LABS: CREATININE 0.5 mg/dL (0.55-1.3)
[2020-07-26 07:49] LABS: BILIRUBIN,TOTAL 1.2 mg/dL (0.2-1)
[2020-07-26] MEDS: PANTOPRAZOLE 40 MG TABLET PO SCH (09:09)
[2020-07-26] MEDS: THIAMINE HCL 200 MG/2 ML VIAL IVPB SCH (09:09)
[2020-07-26] MEDS ORDERED: MAGNESIUM SULF 50% (8.12 MEQ/2 ML-1 GM VIAL) IVPB ONE (11:51)
[2020-07-26] MEDS ORDERED: POTASSIUM CHLORIDE ORAL LIQUID 20 MEQ/15 ML PO ONE (11:51)
[2020-07-26 14:25] VITALS: BP 138/92; PULSE 107; TEMP 98.1
== END 2020-07-26 17:30 | disposition home or self-care (01) | DRG 242 ==
LOC: JER 14:06 → JERBED 19:19 → J6S 07-23 15:25 → J4S 07-23 17:53
PROVIDERS: ADMIT Hospitalist; ATTEND Internal Medicine
PROC: HZ2ZZZZ Detoxification Services for Substance Abuse Treatment (ICD-10-PCS; principal; 2020-07-22)
PROC: 3E0G8GC Introduction of Other Therapeutic Substance into Upper GI, Via Natural or Artificial Opening Endoscopic (ICD-10-PCS; 2020-07-23)
PROC: 0W3P8ZZ Control Bleeding in Gastrointestinal Tract, Via Natural or Artificial Opening Endoscopic (ICD-10-PCS; 2020-07-23)
DX: K22.6 Gastro-esophageal laceration-hemorrhage syndrome (principal); F10.230 Alcohol dependence with withdrawal, uncomplicated; F10.94 Alcohol use, unspecified with alcohol-induced mood disorder; E87.2 Acidosis; R00.0 Tachycardia, unspecified; E11.9 Type 2 diabetes mellitus without complications; K92.0 Hematemesis; D50.9 Iron deficiency anemia, unspecified; R31.29 Other microscopic hematuria; K44.9 Diaphragmatic hernia without obstruction or gangrene; E87.3 Alkalosis; K76.0 Fatty (change of) liver, not elsewhere classified
CPT/HCPCS: 36415; 71045-TC-FY; 74174-TC; 80053; 80307; 81003; 82728; 82803; 82962; 83036; 83540; 83550; 83605; 83690; 83735; 84100; 84484; 85025; 85027; 85045; 85610; 86850; 86900; 86901; 93005; 93010; 94760; 99285-25; C9803; J0131; J1756; U0003